=== PATIENT | male | born 1975 | race Caucasian/White ===

== ENCOUNTER 2018-04-07 09:02 | Emergency (ER) | payer OTHER ==
[~2018-04-07] VITALS: Ht 177.8 cm; Wt 74.8 kg
== END 2018-04-07 10:58 | disposition home or self-care (01) ==
LOC: ER 09:02
DX: R60.0 Localized edema (principal); S61.42 Laceration with foreign body of hand; W26.8XXS Contact with other sharp object(s), not elsewhere classified, sequela